=== PATIENT | male | born 1995 | race Caucasian/White ===

== ENCOUNTER 2019-05-16 14:34 | Emergency (ER) | payer OTHER ==
[2019-05-16] MEDS ORDERED: Lidocaine 1% MPF ** 5 ML VIAL INJ ONE (16:54)
--- NOTE | 2019-05-16 16:55 | ED ---
Laceration/Wound HPI - HPI Summary HPI Summary: Patient is a 24-year-old male who presents emergency department for laceration to left ankle that occurred around 1400 today. Patient states he was working on a car at home when a pipe struck him in the left ankle cutting leg. Patient notes pain with ambulation. States his last tetanus immunization was within 5 years. Symptoms are mild in severity. No significant past medical history. - History of Current Complaint Stated Complaint: "LT ANKLE LACERATION PER PT" Time Seen by Provider: 05/16/19 16:12 Hx Obtained From: Patient Pain Intensity: 3 - Allergy/Home Medications Allergies/Adverse Reactions: Allergies Allergy/AdvReac Type Severity Reaction Status Date / Time No Known Allergies Allergy Verified 05/10/13 06:53 PMH/Surg Hx/FS Hx/Imm Hx Previously Healthy: Yes Endocrine/Hematology History: Denies: Hx Anticoagulant Therapy, Hx Blood Disorders, Hx Diabetes - Immunization History Date of Tetanus Vaccine: Unsure Date of Influenza Vaccine: no Infectious Disease History: No Infectious Disease History: Denies: Traveled Outside the [place] in Last 30 Days - Family History Known Family History: Negative: Blood Disorder - Social History Occupation: Employed Full-time Lives: With Family Alcohol Use: Occasionally Alcohol Amount: 1 beer tonight Hx Substance Use: No Substance Use Type: Reports: None Hx Tobacco Use: Yes - uses chew tobacco Smoking Status (MU): Never Smoked Tobacco Review of Systems Positive: Other - laceration and pain to left medial ankle. Neurological: Negative Negative: Weakness, Paresthesia, Numbness All Other Systems Reviewed And Are Negative: Yes Physical Exam Triage Information Reviewed: Yes Vital Signs On Initial Exam: Initial Vitals Temp Pulse Resp BP Pulse Ox 100.4 F 100 16 160/92 97 05/16/19 14:37 05/16/19 14:37 05/16/19 14:37 05/16/19 14:37 05/16/19 14:37 Vital Signs Reviewed: Yes Appearance: Positive: Well-Appearing - Pt. sitting on bed in NAD. Skin: Positive: Warm, Dry Head/Face: Positive: Normal Head/Face Inspection Eyes: Positive: Normal, EOMI Neck: Positive: Supple Musculoskeletal: Positive: Normal, Strength/ROM Intact, Other - 2cm slighly curved laceration noted over the lateral malleolus. Mild bony tenderness. Full ROM of ankle. Neurological: Positive: Normal, CN Intact II-III Psychiatric: Positive: Affect/Mood Appropriate Procedures - Laceration/Wound Repair 1 Location: lower extremity Description: Linear Anesthesia: Local, 1.0%, Lido Length, Depth and Shape: 2cm curved Betadine Prep?: Yes Irrigated w/ Saline (ccs): 250 Laceration/Wound Explored: clean Closure: Single Layer Suture Type: Nylon Number of Sutures: 4 Layer Closure?: No Sterile Dressing Applied?: Yes Diagnostics - Vital Signs Vital Signs Temp Pulse Resp BP Pulse Ox 05/16/19 14:37 100.4 F 100 16 160/92 97 - Laboratory Lab Statement: Any lab studies that have been ordered have been reviewed, and results considered in the medical decision making process. Laceration Repair Course/Dx - Course Course Of Treatment: Patient presenting with left ankle injury and laceration. Laceration repaired as noted above. X-ray shows mild soft tissue edema without underlying fracture, reading per radiology. Suture removal in 7-10 days. Keep wound clean and dry. Ice and elevate ankle intermittently. Tylenol or Motrin for pain as directed. To return the ER for redness, swelling or drainage from suture site. Patient understands and agrees with plan. - Differential Dx Differental Diagnoses: Fracture, Laceration, Puncture Wound - Clinical Impression Provider Diagnoses: Laceration, Contusion Discharge ED - Sign-Out/Discharge Documenting (check all that apply): Patient Departure Patient Received Moderate/Deep Sedation with Procedure: No - Discharge Plan Condition: Improved Disposition: HOME Patient Education Materials: Care For Your Stitches (ED) Referrals: Alison Medina NP [Primary Care Provider] - Additional Instructions: Suture removal in 7-10 days Keep wound clean and dry Ice and elevate Tylenol or Motrin for pain as directed Return to ER for redness, swelling, or drainage from suture site - Billing Disposition and Condition Condition: IMPROVED Disposition: Home
[2019-05-16 18:25] VITALS: BP 124/75
== END 2019-05-16 18:00 | disposition home or self-care (01) ==
LOC: ED 14:34
DX: S91.012A Laceration without foreign body, left ankle, initial encounter (principal); W45.8XXA Other foreign body or object entering through skin, initial encounter; Y92.009 Unspecified place in unspecified non-institutional (private) residence as the place of occurrence of the external cause
CPT/HCPCS: 12001; 99282